=== PATIENT | female | born 1940 | race Caucasian/White ===

== ENCOUNTER 2017-07-31 11:26 | Inpatient (IN) | payer OTHER ==
[~2017-07-31 11:26] MED LIST: ROPIVACAINE 0.2% 80 MG, EPINEPHrine 0.2 MG, KETOROLAC TROMETHAMINE 30 MG in SYRINGE 0 ML IU ONE; TRANEXAMIC ACID 3,000 MG in NS 50 ML IRR ONE; TRANEXAMIC ACID 3,000 MG/50 ML BAG IRR ONE; VANCOMYCIN 1 GM VIAL ONE
[2017-07-31] MEDS ORDERED: DEXAMETHASONE 4 MG/ML VIAL IVP ONE (11:56)
[2017-07-31] MEDS ORDERED: ACETAMINOPHEN 325 MG TAB PO ONE (11:56)
[2017-07-31] MEDS ORDERED: FAMOTIDINE 20 MG TAB PO ONE (11:56)
[2017-07-31] MEDS ORDERED: ceFAZolin 2 GM/SWFI 2 GM/20 ML SYR IVP ONE (11:56)
[2017-07-31] MEDS ORDERED: LIDOCAINE 1% 2 ML INJ ID PRN (12:00)
[2017-07-31] MEDS ORDERED: LR 1,000 ML IV ONE (12:00)
[2017-07-31 12:40] LABS: ANION GAP 14 mEq/L (8-16); CARBON DIOXIDE 25 mEq/l (22-31); CHLORIDE 101 mEq/L (97-110); CREATININE 0.9 mg/dL (0.6-1.0); GLOMERULAR FILTRATION RATE > 60; GLUCOSE 88 mg/dL (70-100); POTASSIUM 4.2 mEq/L (3.5-5.2); SODIUM 140 mEq/L (134-144)
--- NOTE | 2017-07-31 13:24 | PDHPUP ---
History & Physical Update H&P update statement: This history and physical update is based on an assessment of the patient which was completed after admission or registration (within 24 hours), but prior to the surgery/procedure. H&P update: H&P reviewed & patient examined, no change in patient's condition since H&P completed
[2017-07-31] MEDS ORDERED: MIDAZOLAM 2 MG/2 ML VIAL ONE (14:00)
[2017-07-31] MEDS ORDERED: MIDAZOLAM 2 MG/2 ML VIAL IVP ONE (14:00)
--- NOTE | 2017-07-31 14:03 | PDANEPAE ---
ANE History of Present Illness 76 year old with left knee arthritis ANE Past Medical History - Cardiovascular History Hx Hypertension: Yes Hx Arrhythmias: No Hx Chest Pain: No Hx Coronary Artery / Peripheral Vascular Disease: No Hx CHF / Valvular Disease: No Hx Palpitations: No Cardiovascular History Comment: pcp monitors bp meds - Pulmonary History Hx COPD: No Hx Asthma/Reactive Airway Disease: No Hx Recent Upper Respiratory Infection: No Hx Oxygen in Use at Home: No Hx Sleep Apnea: No Sleep Apnea Screening Result - Last Documented: Negative - Neurologic History Hx Cerebrovascular Accident: No Hx Seizures: No Hx Dementia: No Neurologic History Comment: hx of lumbar and cervical fusion - Endocrine History Hx Diabetes: No - Renal History Hx Renal Disorders: Yes Renal History Comment: recent uti - Liver History Hx Hepatic Disorders: No - Neurological & Psychiatric Hx Hx Neurological and Psychiatric Disorders: Yes Neurological / Psychiatric History Comment: anxiety. depression - Cancer History Hx Cancer: No - Congenital Disorder History Hx Congenital Disorders: No - GI History Hx Gastrointestinal Disorders: Yes Gastrointestinal History Comment: reflux. hx of partial stomach removal d/t ulcers - Other Health History Other Health History: wears glasses. wears upper denture, partial lower - Chronic Pain History Chronic Pain: Yes (bilateral knees) - Surgical History Prior Surgeries: cervical fusion. lumbar fusion. tonsillectomy. appy. hysterectomy. c- section x2. partial stomach removal and splenectomy. thumb joint surgery- left. michael ANE Review of Systems Review of systems is: negative Review of Systems: - Exercise capacity METS (RN): 4 METS ANE Patient History - Allergies Allergies/Adverse Reactions: acetaminophen [From [place]] Allergy (Verified 07/09/17 10:40) Vomiting codeine Allergy (Verified 07/09/17 10:40) HALLUCINATIONS hydrocodone [From [place]] Allergy (Verified 07/09/17 10:40) Vomiting levofloxacin [From Levaquin] Allergy (Verified 07/09/17 10:40) Vomiting meperidine [From Demerol] Allergy (Verified 07/09/17 10:40) Itching morphine Allergy (Verified 07/09/17 10:40) HEADACHE - Home Medications Home medications: home medication list seen and reviewed Home Medications: Aspirin [Aspirin 81mg (*)] 81 mg PO HS 07/08/17 [Last Taken 07/17/17] C/E/Zn/Cu/OM3/DHA/EPA/LUT/ZEAX [Preservision Areds 2 Softgel] 1 each PO BID [Last Taken Unknown] Calcium Citrate [Citracal (OTC)] 200 mg PO DAILY 07/08/17 [Last Taken Unknown] Dextran 70/Hypromellose [Artificial Tears] 1 each OP DAILY PRN 07/08/17 [Last Taken Unknown] Herbals/Supplements -Info Only 1 ea PO DAILY 07/08/17 [Last Taken Unknown] Hydrochlorothiazide [HCTZ (*)] 25 mg PO DAILY 07/08/17 [Last Taken 07/30/17 09: 00] Melatonin [Melatonin 3 MG (*)] 3 mg PO HS 07/08/17 [Last Taken 07/29/17] Pantoprazole Sodium [Protonix 40mg (*)] 40 mg PO HS 07/08/17 [Last Taken 20:00] Potassium Cl [Klor-Con] 10 meq PO HS 07/08/17 [Last Taken 07/30/17 20:00] SUMAtriptan [Imitrex 50 MG (*)] 50 mg PO DAILY PRN 07/08/17 [Last Taken 07/30/17 ] Sertraline HCl [Zoloft 100mg (*)] 200 mg PO HS 07/08/17 [Last Taken 07/30/17 20: 00] Vitamin B Complex [B Complex] 1 each PO DAILY 07/08/17 [Last Taken Unknown] clonazePAM [Klonopin (*)] 0.5 mg PO DAILY PRN 07/08/17 [Last Taken 07/31/17 09: 00] - NPO status NPO Since - Liquids (Date): 07/30/17 NPO Since - Liquids (Time): 08:00 NPO Since - Solids (Date): 07/30/17 NPO Since - Solids (Time): 19:00 - Anes Hx Anes Hx: no prior problems - Smoking Hx Smoking Status: Never smoked - Alcohol Use Alcohol Use: None - Family Anes Hx Family Hx Anesthesia Complications: none ANE Labs/Vital Signs - Labs Result Diagrams: 07/31/17 12:15 - Vital Signs Blood Pressure: 134/49 Heart Rate: 60 Respiratory Rate: 20 O2 Sat (%): 94 Height: 160.02 cm Weight: 61.235 kg ANE Physical Exam - Airway Neck exam: FROM Mallampati Score: Class 1 Mouth exam: normal dental/mouth exam, poor dentition - Pulmonary Pulmonary: no respiratory distress - Cardiovascular Cardiovascular: regular rate and rhythym - ASA Status ASA Status: II ANE Anesthesia Plan Anesthesia Plan: spinal
[2017-07-31] MEDS ORDERED: fentaNYL 100 MCG/2 ML INJ ONE (14:15)
[2017-07-31] MEDS ORDERED: PROPOFOL/EMULSION 500 MG/50 ML BOTTLE IV ONE (14:25)
[2017-07-31] MEDS ORDERED: POLYETHYLENE GLYCOL 3350 17 GM PKT PO PRN (15:30)
[2017-07-31] MEDS ORDERED: METOCLOPRAMIDE 10 MG/2 ML VIAL IVP PRN (15:30)
[2017-07-31] MEDS ORDERED: MAGNESIUM HYDROXIDE 30 ML UDCUP PO PRN (15:30)
[2017-07-31] MEDS ORDERED: HYDROmorphONE/DILAUDID 2 MG TAB PO PRN (15:30)
[2017-07-31] MEDS ORDERED: LR 1,000 ML IV SCH (15:30)
[2017-07-31] MEDS ORDERED: diphenhydrAMINE 25 MG CAP PO PRN (15:30)
[2017-07-31] MEDS ORDERED: LACTULOSE 20 GM/30 ML UDCUP PO PRN (15:30)
[2017-07-31] MEDS ORDERED: fentaNYL 100 MCG/2 ML INJ IVP PRN ×2 (15:30→15:51)
[2017-07-31] MEDS ORDERED: ONDANSETRON 4 MG/2 ML VIAL IVP PRN (15:30)
[2017-07-31] MEDS ORDERED: ONDANSETRON DISINTEGRATING 4 MG TAB PO PRN (15:30)
[2017-07-31] MEDS ORDERED: DIPHENOXYLATE/ATROPINE LOMOTIL 1 TAB PO PRN (15:30)
[2017-07-31] MEDS ORDERED: PROMETHAZINE HCL 25 MG SUPPR PR PRN (15:30)
[2017-07-31] MEDS ORDERED: BISACODYL 10 MG SUPP PR PRN (15:30)
[2017-07-31] MEDS ORDERED: PROMETHAZINE HCL 25 MG/ML INJ IVP PRN ×2 (15:30→15:51)
[2017-07-31] MEDS ORDERED: TEMAZEPAM 15 MG CAP PO PRN (15:30)
--- NOTE | 2017-07-31 15:30 | POSTOPPROG ---
Post Op Note Date of Operation: 07/31/17 Surgeon: Kei Sr Hot Shot: diandra sr Anesthesiologist: dr. henning Anesthesia: Spinal, Other (Specify) (adductor canal block) Pre-op Diagnosis: L knee OA Post-op Diagnosis: same Indication: left knee pain due to OA that failed conservative measures Procedure: L TKA Findings: severe knee OA Inf/Abcess present in the surg proc area at time of surgery?: No EBL: 50-100
[2017-07-31] MEDS ORDERED: NON-FORMULARY NEW DRUG (Dextran 70/Hypromellose [Artificial Tears] 1 EACH) OP PRN (15:33)
[2017-07-31] MEDS ORDERED: clonazePAM 0.5 MG TAB PO PRN (15:33)
[2017-07-31] MEDS ORDERED: SUMAtriptan 50 MG TAB PO PRN (15:33)
[2017-07-31] MEDS ORDERED: TEARS/DEXTRAN 70/HYPROMELLOSE 15 ML OPHT.BTL OP PRN (15:50)
[2017-07-31] MEDS ORDERED: NALOXONE HCL 0.4 MG/ML INJ IVP PRN (15:51)
[2017-07-31] MEDS ORDERED: DEXAMETHASONE 4 MG/ML VIAL IVP PRN (15:51)
--- NOTE | 2017-07-31 15:53 | POSTANESTH ---
Post Anesthetic Evaluation Cardiovascular Status: Normal, Stable Respiratory Status: Normal, Stable Level of Consciousness/Mental Status: Can Participate in Eval, Alert and Oriented Pain Control: Adequate, Prn Tx Ordered Nausea/Vomiting Control: Adequate, Prn Tx Ordered Complications Possibly Related to Anesthesia: None Noted
[2017-07-31] MEDS ORDERED: ONDANSETRON 4 MG/2 ML VIAL ONE (16:06)
[2017-07-31] MEDS ORDERED: DEXAMETHASONE 4 MG/ML VIAL ONE (16:34)
[2017-07-31] MEDS: ACETAMINOPHEN 325 MG TAB PO SCH ×2 (17:38→22:33)
[2017-07-31] MEDS: SENNOSIDES/DOCUSATE SODIUM TAB PO SCH (20:23)
[2017-07-31] MEDS: FAMOTIDINE 20 MG TAB PO SCH (20:23)
[2017-07-31] MEDS: ASPIRIN EC 81 MG TAB PO SCH (20:23)
[2017-07-31] MEDS ORDERED: POTASSIUM CL 10 MEQ TAB PO SCH (21:00)
[2017-07-31] MEDS ORDERED: SERTRALINE HCL 100 MG TAB PO SCH (21:00)
[2017-07-31] MEDS ORDERED: PANTOPRAZOLE SODIUM 40 MG TAB PO SCH (21:00)
[2017-07-31] MEDS: CYCLOBENZAPRINE 10 MG TAB PO PRN (21:19)
[2017-07-31] MEDS: ceFAZolin 2 GM/SWFI 2 GM/20 ML SYR IVP SCH (22:26)
[2017-08-01 04:45] VITALS: RESP 16
[2017-08-01] MEDS: ACETAMINOPHEN 325 MG TAB PO SCH ×2 (04:54→11:12)
[2017-08-01] MEDS: ceFAZolin 2 GM/SWFI 2 GM/20 ML SYR IVP SCH (04:55)
[2017-08-01] MEDS: CYCLOBENZAPRINE 10 MG TAB PO PRN (05:12)
--- NOTE | 2017-08-01 05:58 | GOP ---
[f rep st] OPERATIVE REPORT DATE OF OPERATION: 07/31/17 SURGEON: Sandra Luo MD CORDWAINER: MALIKA Lind ANESTHESIA: Spinal. PREOPERATIVE DIAGNOSIS: Left knee osteoarthritis. POSTOPERATIVE DIAGNOSIS: Left knee osteoarthritis. PROCEDURE PERFORMED: Total knee arthroplasty. FINDINGS/PATHOLOGY: Severe arthritis ESTIMATED BLOOD LOSS: 30 cc. INDICATIONS: This is a 76-year-old female with severe and progressive pain and deformity of the left knee unresponsive to conservative care. Risks and benefits of the surgical intervention were explained in detail. DESCRIPTION OF PROCEDURE: The patient was brought to the operative room and placed on the table in the supine position. Spinal anesthesia was induced without difficulty. A pneumatic tourniquet was applied about the left proximal thigh, and the leg was prepped and draped in a sterile fashion. The leg valenzuela was applied. After exsanguination by elevation the tourniquet was inflated to 275 mm of mercury. Incision was made anterior medial from the tibial tuberosity to a point 2 cm proximal to the superior pole of the patella. Medial parapatellar arthrotomy was carried out from the superior pole of the patella and posteriorly in line with the fibers of the Type II VMO. The medial collateral ligament was elevated and the infrapatellar fat pad was resected. The patella was everted and the articular surface was excised. A 35 mm patellar button was placed. The distal femoral guide hole was drilled and the 6 degree alignment eliel was placed. A 10 mm distal femoral cut was made without difficulty. Attention was turned to the tibia and a standard 6 mm cut based on the medial tibial condyle was performed. The tibial articular surface was excised without difficulty. Attention was turned back to the femur and a size 5 Triathlon femoral cutting block was positioned. Anterior, posterior, and chamfer cuts were made, followed by the intercondylar box cut. The knee was extended and the remnants of the medial and lateral meniscus were excised. The posterior capsule was injected with ropivacaine, epinephrine and Toradol. A size 5 triathalon trial reduction tibial tray was positioned. Trial reduction was then carried out. There was excellent range of motion, alignment, and stability using the 9 mm polyethylene. All trials were then removed. The joint was thoroughly irrigated and carefully dried. . The pres fit components were implanted The permanent 9 mm polyethylene was placed without difficulty. The tourniquet was deflated and all bleeders were coagulated. The wound was thoroughly irrigated and closed using interrupted sutures of 2-0 Vicryl for the joint capsule. The subcu was closed with 3-0 Vicryl and the skin with 4-0 Monocryl. Dermabond and Steri-Strips were applied followed by a compressive dressing. The patient was then moved from the operating room to the recovery room in good condition, having tolerated the procedure well. /[id number]/MODL MTDD
[2017-08-01 06:53] LABS: HEMATOCRIT 29.9 % (38.0-47.0); HEMOGLOBIN 10.3 g/dL (12.6-16.3)
[2017-08-01 07:02] LABS: ANION GAP 9 mEq/L (8-16); CALCIUM 8.8 mg/dL (8.5-10.4); CARBON DIOXIDE 27 mEq/l (22-31); CHLORIDE 106 mEq/L (97-110); CREATININE 0.8 mg/dL (0.6-1.0); GLOMERULAR FILTRATION RATE > 60; GLUCOSE 117 mg/dL (70-100); POTASSIUM 4.4 mEq/L (3.5-5.2); SODIUM 142 mEq/L (134-144)
[2017-08-01 08:20] VITALS: BP 113/50; PULSE 62; TEMP 97.4; O2SAT 97
[2017-08-01] MEDS ORDERED: HYDROCHLOROTHIAZIDE 25 MG TAB PO SCH (09:00)
[2017-08-01] MEDS: SENNOSIDES/DOCUSATE SODIUM TAB PO SCH (09:25)
[2017-08-01] MEDS: ASPIRIN EC 81 MG TAB PO SCH (09:25)
[2017-08-01] MEDS: FAMOTIDINE 20 MG TAB PO SCH (09:25)
--- NOTE | 2017-08-01 10:39 | SOAPPROG ---
SOAP Progress Note Assessment/Plan: Assessment: Patient is doing well POD 1 s/p L TKA Pain management: pain is well controlled on oral pain meds. Called tramadol script into patient's pharmacy as well as cyclobenzaprine. REcommend patient try dilaudid pain med prior to discharge to make sure she handles it ok. History of headache and nausea with narcotic pain meds VTE ppx: recommend aspirin daily for 4 weeks, cont PIOTR and SCDs Anemia: level is expected initially postop. Asymptomatic. Continue to monitor D/c planning: d/c to home today pending release from PT Plan: 08/01/17 10:37 Subjective: hailey is resting comfortably, denies SOB, chest pain and N/V. Objective: Vital Signs Temp Pulse Resp BP Pulse Ox 36.3 C 62 16 113/50 L 97 08/01/17 08:00 08/01/17 08:00 08/01/17 08:00 08/01/17 09:25 08/01/17 08:00 Laboratory Results 08/01/17 05:50 08/01/17 05:50 07/31/17 08/01/17 08/02/17 05:59 05:59 05:59 Intake Total 1850 380 Output Total 650 Balance 1200 380 LLE: incision dressing is clean and dry, NVI, +pf/df ICD10 Worksheet Patient Problems: Problems Problem Status Onset Primary localized osteoarthritis of left knee Acute
--- NOTE | 2017-08-01 13:50 | ASDISCHSUM ---
Discharge Information Plan Status:Home with No Needs Medically Cleared to Leave: Discharge Date:08/01/2017 12:38 PM D/C Disposition:Home, Routine, Self-Care ADT D/C Disposition:Home, Routine, Self-Care Projected Discharge Date:08/01/2017 12:38 PM Transportation at D/C: Discharge Delay Reason: Follow-Up Date:08/01/2017 12:38 PM Discharge Slot: Final Diagnosis: Placement Information Patient Contact Information Contact Name:EDELMIRA Relationship:Mimi Address: Work Phone: City: [facility] Phone: State/[place] Dx Code: Email: Financial Information Financial Class:MC Primary Plan Desc:MEDICARE INPATIENT Primary Plan Number:[id number] Secondary Plan Desc:UCT Secondary Plan Number:[id number] Assessment Information Intervention Information
--- NOTE | 2017-08-02 03:09 | GDS ---
[f rep st] DISCHARGE SUMMARY ADMISSION DIAGNOSIS: Left knee osteoarthritis. DISCHARGE DIAGNOSIS: Left knee osteoarthritis. PROCEDURE: Left total knee arthroplasty. VTE PROPHYLAXIS: Recommend aspirin 81 mg twice daily for 4 weeks. BRIEF DESCRIPTION OF HOSPITAL STAY: Patient was admitted for an elective joint arthroplasty. The pa tient tolerated the procedure well and has passed physical therapy. The patient was given appropriat e antibiotic prophylaxis and venous thromboembolism prophylaxis. The patient's pain was well control led on oral pain medication, patient was holding down food, and had urinated. Decision was made to d ischarge the patient. The patient was given post-operative prescriptions pre-operatively. PLAN: Please follow up as scheduled in Dr. Luo's office August 22 at 10:15 a.m. /[id number]/MODL
== END 2017-08-01 12:38 | disposition home or self-care (01) | DRG 470 ==
LOC: F3N 11:26
PROVIDERS: ADMIT Orthopaedic Surgery; ATTEND Orthopaedic Surgery
PROC: 0SRD0JZ Replacement of Left Knee Joint with Synthetic Substitute, Open Approach (ICD-10-PCS; principal; 2017-07-31 14:15)
DX: M17.12 Unilateral primary osteoarthritis, left knee (principal); Z87.891 Personal history of nicotine dependence
CPT/HCPCS: 97161-GP; 97165-GO; G8978-GP-CI; G8979-GP-CI; G8980-GP-CI; G8987-GO-CI; G8988-GO-CH; G8989-GO-CH; J0171; J0690; J1100; J1885; J2250; J2405; J2704; J2795; J3010; J3370